=== PATIENT | female | born 1980 | race African-American/Black ===

== ENCOUNTER 2017-01-09 10:07 | Emergency (ER) | payer BC, OTHER ==
[~2017-01-09 10:07] MED LIST: AUGMENTIN875 MG PO; CLARITIN D PO; DOXYCYCLINE150 MG PO; TYLENOL #3 PO; VICODIN 5/500 T1 TAB PO; ZYPREXA PO
== END 2017-01-09 10:19 | disposition home or self-care (01) ==
LOC: CED 10:07
DX: J01.90 Acute sinusitis, unspecified (principal); F17.210 Nicotine dependence, cigarettes, uncomplicated
CPT/HCPCS: 99282